=== PATIENT | female | born 1990 | race Caucasian/White ===

== ENCOUNTER → 2016-09-25 | Outpatient (CLI) | payer OTHER ==
[~2016-09-25] MED LIST: COLACE 100MG C100 MG PO; NORCO 5-325 TA1 EACH PO
[2016-09-25 16:02] LABS: HEMOGLOBIN 12.1 gm/dl (12.3-15.3); RED BLOOD COUNT 3.85 M/UL (4.00-5.10); WHITE BLOOD COUNT 9.6 K/UL (4.5-11.0)
== END ==
LOC: GENOP 15:07
PROVIDERS: Obstetrics & Gynecology
DX: Z01.818 Encounter for other preprocedural examination (principal); O26.893 Other specified pregnancy related conditions, third trimester; D25.9 Leiomyoma of uterus, unspecified; Z3A.38 38 weeks gestation of pregnancy
CPT/HCPCS: 36415; 81001; 85025

== ENCOUNTER 2016-09-29 08:44 | Inpatient (IN) | payer OTHER ==
[2016-09-30 03:15] LABS: HEMOGLOBIN 9.7 gm/dl (12.3-15.3)
[2016-10-01] MEDS ORDERED: NORCO 5-325 TA1 EACH PO (09:58)
[2016-10-01] MEDS ORDERED: COLACE 100MG C100 MG PO (09:58)
== END 2016-10-01 12:35 | disposition home or self-care (01) | DRG 765 ==
LOC: OB 08:44
PROVIDERS: ADMIT Obstetrics & Gynecology
PROC: 3E0234Z Introduction of Serum, Toxoid and Vaccine into Muscle, Percutaneous Approach (ICD-10-PCS; 2016-09-29)
PROC: 10D00Z1 Extraction of Products of Conception, Low, Open Approach (ICD-10-PCS; principal; 2016-09-29 13:00)
DX: O34.13 Maternal care for benign tumor of corpus uteri, third trimester (principal); O98.42 Viral hepatitis complicating childbirth; O99.334 Smoking (tobacco) complicating childbirth; F17.210 Nicotine dependence, cigarettes, uncomplicated; O99.344 Other mental disorders complicating childbirth; O75.89 Other specified complications of labor and delivery; K58.9 Irritable bowel syndrome, unspecified; B19.20 Unspecified viral hepatitis C without hepatic coma; R11.10 Vomiting, unspecified; I95.9 Hypotension, unspecified; Z3A.39 39 weeks gestation of pregnancy; Z82.49 Family history of ischemic heart disease and other diseases of the circulatory system; Z23 Encounter for immunization; Z37.0 Single live birth
CPT/HCPCS: 36415; 82800; 85014; 85018; 90715; C9113; J0690; J1885; J2270; J2274; J2590; J2765; J7120